=== PATIENT | female | born 1990 | race Caucasian/White ===

== ENCOUNTER → 2018-02-10 14:36 | Observation (INO) ==
[2018-02-10 13:34] LABS: Bilirubin,Urine Negative (Negative); Blood,Urine Negative (Negative); Clarity,Urine Cloudy (Clear); Color,Urine Yellow (Yellow); Glucose,Urine (UA) Normal (Normal); Ketones,Urine Negative (Negative); Leukocyte Esterase,Urine Trace (Negative); Nitrite,Urine Negative (Negative); Protein,Urine Negative (Neg-Trace); Specific Gravity,Urine 1.022 (1.010-1.025); Urobilinogen,Urine Normal (Normal)
[2018-02-10 13:37] LABS: Bacteria,Urine Moderate per hpf (None-Few); Hyaline Casts,Urine None Seen per lpf (None-Few); Squamous Epithelial Cell,Urine Many per lpf (None-Few); WBC,Urine 15-30 per hpf (0-3)
[2018-02-10 13:45] LABS: Amphetamine Screen,Urine Negative ng/mL (Cutoff=1000); Barbiturate Screen,Urine Negative ng/mL (Cutoff=200); Benzodiazepines Screen,Urine Negative ng/mL (Cutoff=200); Cannabinoid Screen,Urine Negative ng/mL (Cutoff = 50); Cocaine Screen,Urine Negative ng/mL (Cutoff= 300); Opiate Screen,Urine Negative ng/mL (Cutoff=300); Phencyclidine Screen,Urine Negative ng/mL (Cutoff=25)
[2018-02-10 14:00] LABS: RBC,Urine 0-3 per hpf (0-3); Renal Epithelial Cells,Urine Few per hpf (None-Few)
--- NOTE | 2018-02-10 14:33 | OB/GYN Progress Note ---
Date of Encounter: 02/10/18 Time of Encounter: 14:29 - Assessment and Plan (1) 23 weeks gestation of Current Visit: Yes Status: Acute (2) Round ligament pain Current Visit: Yes Status: Acute Discharge home with precautions. Follow-up in our office as pt plans to deliver here. Subjective - Subjective Interval history: 27 year-old presenting at 23 weeks gestation with c/o intermittent sharp pains in lower abdomen. She denies contractions, leaking, bleeding, urinary sx, fevers or other complaints. Good FM. No other complaints. She gets care at [place] but plans to deliver here. She missed her s/m appt because she was distressed after having a miscarriage. Antepartum ROS: movement normal, no loss of fluid, no vaginal bleeding, no contractions Objective - Vital Signs Vital Signs: Intake and Output 02/09/18 02/10/18 02/10/18 23:59 07:59 15:59 Other: Weight 80.6 kg Patient Weight 02/10/18 23:59 Weight 80.6 kg - Exam FHR: category 1 FHR comments: FHT reassuring for GA Auscultation: bilateral: normal Abdomen: Present: soft, gravid (TTP bilateral pelvis. No fundal tenderness and no suprapubic tenderness) Uterus: Present: normal. Absent: tenderness Comments: no contractions - Labs Labs: Abnormal lab results Urine Clarity Cloudy (Clear) A 02/10/18 13:04 Ur Leukocyte Esterase Trace (Negative) H 02/10/18 13:04 Urine Microscopic WBC 15-30 per hpf (0-3) H 02/10/18 13:04 Ur Squamous Epith Cells Many per lpf (None-Few) H 02/10/18 13:04 Urine Bacteria Moderate per hpf (None-Few) H 02/10/18 13:04
== END | disposition home or self-care (01) ==
LOC: 1NENULAB
PROVIDERS: ADMIT Obstetrics & Gynecology; ATTEND Obstetrics & Gynecology

== ENCOUNTER → 2018-03-06 02:16 | Observation (INO) ==
[2018-03-05 23:57] LABS: Bilirubin,Urine Negative (Negative); Blood,Urine Negative (Negative); Clarity,Urine Clear (Clear); Color,Urine Yellow (Yellow); Glucose,Urine (UA) Normal (Normal); Ketones,Urine Negative (Negative); Leukocyte Esterase,Urine Trace (Negative); Nitrite,Urine Negative (Negative); Protein,Urine Negative (Neg-Trace); Urobilinogen,Urine Normal (Normal)
[2018-03-06 00:07] LABS: Amphetamine Screen,Urine Negative ng/mL (Cutoff=1000); Barbiturate Screen,Urine Negative ng/mL (Cutoff=200); Benzodiazepines Screen,Urine Negative ng/mL (Cutoff=200); Cannabinoid Screen,Urine Negative ng/mL (Cutoff = 50); Cocaine Screen,Urine Negative ng/mL (Cutoff= 300); Opiate Screen,Urine Negative ng/mL (Cutoff=300); Phencyclidine Screen,Urine Negative ng/mL (Cutoff=25)
[2018-03-06 00:10] LABS: Bacteria,Urine Moderate per hpf (None-Few); Hyaline Casts,Urine None Seen per lpf (None-Few); Squamous Epithelial Cell,Urine Many per lpf (None-Few)
[2018-03-06 00:11] LABS: RBC,Urine 0-3 per hpf (0-3)
--- NOTE | 2018-03-06 00:56 | OB/GYN Progress Note ---
Date of Encounter: 03/06/18 Time of Encounter: 00:42 - Assessment and Plan (1) 26 weeks gestation of Current Visit: Yes Status: Acute (2) Back pain affecting in second trimester Current Visit: Yes Status: Acute UA - negative Terbutaline to stop contractions Follow up as scheduled D/C home Subjective - Subjective Interval history: Ms. Bravo presents tonight with c/o back pain that began earlier today. She endorses good FM and denies sensation of ctx, LOF, and VB. Antepartum ROS: new complaints, movement normal, no loss of fluid, no vaginal bleeding, no contractions Objective - Exam FHR: category 1 Auscultation: bilateral: normal Abdomen: Present: normal appearance, soft, gravid Uterus: Present: normal, firm - Labs Labs: Abnormal lab results Ur Leukocyte Esterase Trace (Negative) H 03/05/18 23:52 Urine Microscopic WBC 3-5 per hpf (0-3) H 03/05/18 23:52 Ur Squamous Epith Cells Many per lpf (None-Few) H 03/05/18 23:52 Urine Bacteria Moderate per hpf (None-Few) H 03/05/18 23:52 Ur Culture Indicated? NO. (NO) A 03/05/18 23:52
[~2018-03-06 02:16] MED LIST: Terbutaline 1 MG/ML VIAL SQ ONE
== END | disposition home or self-care (01) ==
LOC: 1NENULAB
PROVIDERS: ADMIT Advanced Practice Midwife; ATTEND Advanced Practice Midwife

== ENCOUNTER → 2018-05-10 13:18 | Observation (INO) ==
[2018-05-10 12:33] LABS: Basophils # 0.1 K/mcL (0.0-0.2); Basophils % 0.7 %; Eosinophils # 0.6 K/mcL (0.0-0.6); Eosinophils % 3.5 %; Hemoglobin 9.6 g/dL (11.5-15.4); Immature Granulocytes % 3.4 % (0-4); Lymphocytes # 2.3 K/mcL (0.6-4.6); Lymphocytes % 13.8 %; Mean Corpuscular HGB Conc 33.1 g/dL (31.6-35.5); Mean Corpuscular Hemoglobin 31.9 pg (28.0-33.3); Mean Corpuscular Volume 96.3 fL (83.0-100.0); Mean Platelet Volume 10.4 fL (9.4-12.4); Monocytes # 1.4 K/mcL (0.0-1.3); Neutrophils # 11.9 K/mcL (1.6-8.9); Nucleated Red Blood Cells 0.1 /100 WBC (0); Platelet Count 266 K/mcL (140-400); Red Blood Count 3.01 M/mcL (3.82-4.97); Red Cell Distribution Width 14.4 % (11.5-14.5); Segmented Neutrophils % 70.6 %
[2018-05-10 12:59] LABS: Alanine Aminotransferase 7 Units/L (7-52); Aspartate Amino Transferase 12 Units/L (13-39); BUN/Creatinine Ratio 12 (6-26); Blood Urea Nitrogen 7 mg/dL (6-20); Lactate Dehydrogenase 138 Units/L (140-271); Uric Acid 4.1 mg/dL (2.3-7.6); eGFR For African Americans > 60 (> 60); eGFR For Non-African Americans > 60 (> 60)
--- NOTE | 2018-05-10 13:13 | OB/GYN Progress Note ---
Date of Encounter: 05/10/18 Time of Encounter: 13:10 - Assessment and Plan (1) 36 weeks gestation of Current Visit: Yes Status: Acute (2) Elevated blood pressure affecting in third trimester, antepartum Current Visit: Yes Status: Acute Normotensive in triage, PIH labs negative. Discussed with Dr. Ascencio, previously elevated P/C ratio so no need to wait on P/C for discharge. Discharged home with PIH, labor and when to return to triage precautions. Pt verbalizes understanding. Subjective - Subjective Interval history: Sent over from office for MANDIE ochoa for mild range pressures and complaints of headache, and blurry vision and seeing stars today. Pt states she has not tried tylenol. Reports good movement, denies vaginal bleeding or leaking of fluid. Antepartum ROS: movement normal, no loss of fluid, no vaginal bleeding, no contractions Objective - Exam FHR: auscultation normal FHR comments: Baseline 125 Abdomen: Present: soft, gravid Comments: +1 DTR - Labs Labs: Abnormal lab results WBC 16.9 K/mcL (4.3-11.1) H 05/10/18 12:00 RBC 3.01 M/mcL (3.82-4.97) L 05/10/18 12:00 Hgb 9.6 g/dL (11.5-15.4) L 05/10/18 12:00 Hct 29.0 % (35.3-44.9) L 05/10/18 12:00 Neutrophils # 11.9 K/mcL (1.6-8.9) H 05/10/18 12:00 Monocytes # 1.4 K/mcL (0.0-1.3) H 05/10/18 12:00 Nucleated RBCs/100 WBC 0.1 /100 WBC (0) H 05/10/18 12:00 Creatinine 0.57 mg/dL (0.60-1.20) L 05/10/18 12:00 AST 12 Units/L (13-39) L 05/10/18 12:00 Lactate Dehydrogenase 138 Units/L (140-271) L 05/10/18 12:00
[2018-05-10 13:38] LABS: Amphetamine Screen,Urine Negative ng/mL (Cutoff=1000); Barbiturate Screen,Urine Negative ng/mL (Cutoff=200); Benzodiazepines Screen,Urine Negative ng/mL (Cutoff=200); Cannabinoid Screen,Urine Negative ng/mL (Cutoff = 50); Cocaine Screen,Urine Negative ng/mL (Cutoff= 300); Creatinine,Urine 114 mg/dL; Opiate Screen,Urine Negative ng/mL (Cutoff=300); Phencyclidine Screen,Urine Negative ng/mL (Cutoff=25); Protein/Creatinine Ratio,Urine 0.21 mg/mg (0.00-0.20)
== END | disposition home or self-care (01) ==
LOC: 1NENULAB
PROVIDERS: ADMIT Obstetrics & Gynecology; ATTEND Obstetrics & Gynecology

== ENCOUNTER → 2018-05-17 22:47 | Observation (INO) ==
[2018-05-17 21:10] LABS: Bilirubin,Urine Negative (Negative); Blood,Urine Negative (Negative); Clarity,Urine Cloudy (Clear); Color,Urine Dark Yellow (Yellow); Glucose,Urine (UA) Normal (Normal); Ketones,Urine Trace mg/dL (Negative); Leukocyte Esterase,Urine Negative (Negative); Nitrite,Urine Negative (Negative); PH,Urine 6.5 pH Units (5.0-8.0); Protein,Urine 30 mg/dL (Neg-Trace); Urobilinogen,Urine Normal (Normal)
--- NOTE | 2018-05-17 21:11 | OB/GYN Progress Note ---
Date of Encounter: 05/17/18 Time of Encounter: 21:08 - Assessment and Plan (1) 37 weeks gestation of Current Visit: Yes Status: Acute Continue routine PNC as scheduled Labor precautions given Discharge home GBS unresulted from office visit 2 weeks ago. Recollected and sent for processing today. (2) Uterine contractions during Current Visit: Yes Status: Acute Cervix unchanged from initial exam Drink 60 oz water Take a warm shower or bath Return when contractions are 5 minutes apart for an hour. Subjective - Subjective Interval history: Ms. Bravo is a 27 year old at 37 weeks gestation who presents with c/ o contractions happening every 2 minutes for 20 minutes. She endorses good fm and denies lof, vb. Antepartum ROS: new complaints, movement normal, contractions, no loss of fluid, no vaginal bleeding Objective - Vital Signs Vital Signs: Intake and Output 05/17/18 05/17/18 05/17/18 07:59 15:59 23:59 Other: Weight 96.162 kg Patient Weight 05/17/18 23:59 Weight 96.162 kg - Exam FHR: category 1 FHR comments: Baseline 130 Moderate variability Accelerations present 15x15 No decelerations FHR Category I Irritability on toco Auscultation: bilateral: normal Abdomen: Present: normal appearance, soft, gravid Uterus: Present: normal, firm Cervical dilation: 3-4 Cervix effacement: 50 station: -3
[2018-05-17 21:12] LABS: Bacteria,Urine Moderate per hpf (None-Few); Hyaline Casts,Urine None Seen per lpf (None-Few); RBC,Urine 0-3 per hpf (0-3); Squamous Epithelial Cell,Urine Many per lpf (None-Few)
[2018-05-17 21:20] LABS: Amphetamine Screen,Urine Negative ng/mL (Cutoff=1000); Barbiturate Screen,Urine Negative ng/mL (Cutoff=200); Benzodiazepines Screen,Urine Negative ng/mL (Cutoff=200); Cannabinoid Screen,Urine Negative ng/mL (Cutoff = 50); Cocaine Screen,Urine Negative ng/mL (Cutoff= 300); Opiate Screen,Urine Negative ng/mL (Cutoff=300); Phencyclidine Screen,Urine Negative ng/mL (Cutoff=25)
[2018-05-17 21:22] LABS: Calcium Oxalate Crystals,Urine Present
== END | disposition home or self-care (01) ==
LOC: 1NENULAB
PROVIDERS: ADMIT Advanced Practice Midwife; ATTEND Advanced Practice Midwife

== ENCOUNTER 2019-09-23 05:20 | Inpatient (IN) ==
[2019-09-23] MEDS ORDERED: Sodium Bicarbonate 50 MEQ/50 ML VIAL ONE (05:43)
[2019-09-23 06:00] LABS: Hematocrit 42.2 % (35.3-44.9); Hemoglobin 12.7 g/dL (11.5-15.4); Mean Corpuscular HGB Conc 30.1 g/dL (31.6-35.5); Mean Corpuscular Hemoglobin 30.8 pg (28.0-33.3); Mean Corpuscular Volume 102.4 fL (83.0-100.0); Mean Platelet Volume 10.3 fL (9.4-12.4); Platelet Count 313 K/mcL (140-400); Red Blood Count 4.12 M/mcL (3.82-4.97); Red Cell Distribution Width 13.4 % (11.5-14.5); White Blood Count 23.3 K/mcL (4.3-11.1)
[2019-09-23 06:07] LABS: VBG HCO3 16 mEq/L (21-27); VBG PCO2 104 mmHg (41-51); VBG PH 6.79 pH Units (7.32-7.42); VBG PO2 132 mmHg (25-50)
[2019-09-23] MEDS ORDERED: Calcium Gluconate 1gm/50mL 1 GM/50 ML BAG IVPB PRN (06:18)
[2019-09-23] MEDS ORDERED: 0.9 % Sodium Chloride 1,000 ML IVC ONE (06:20)
[2019-09-23 06:24] LABS: Alanine Aminotransferase 127 Units/L (7-52); Albumin 3.4 g/dL (3.5-5.7); Albumin/Globulin Ratio 1.6 (1.1-2.2); Alkaline Phosphatase 61 Units/L (34-104); Aspartate Amino Transferase 126 Units/L (13-39); BUN/Creatinine Ratio 16 (6-26); Bilirubin,Indirect 0.2 mg/dL (0.0-1.0); Bilirubin,Total 0.2 mg/dL (0.3-1.0); Blood Urea Nitrogen 17 mg/dL (6-20); Calcium 10.8 mg/dL (8.6-10.3); Carbon Dioxide 18 mEq/L (23-29); Chloride 99 mEq/L (98-107); Globulin 2.1 g/dL (2.4-3.5); Glucose 369 mg/dL (70-105); Osmolality,Calculated 305 (280-300); Potassium 4.5 mEq/L (3.5-5.1); Sodium 139 mEq/L (136-145); Total Protein 5.5 g/dL (6.4-8.9); eGFR For African Americans > 60 (> 60); eGFR For Non-African Americans 60 (> 60)
[2019-09-23 06:28] LABS: Troponin I 0.14 ng/mL (< 0.04)
[2019-09-23] MEDS ORDERED: Sodium Bicarbonate 50 MEQ in 0.45 % Sodium Chloride 1,000 ML IVC SCH (06:30)
[2019-09-23] MEDS ORDERED: *HR* FentaNYL (PF) 100 MCG/2 ML VIAL IVP ONE (06:33)
[2019-09-23] MEDS ORDERED: *HR* LORazepam 2 MG/ML VIAL IM STA (06:33)
[2019-09-23] MEDS ORDERED: *HR* LORazepam 2 MG/ML VIAL IVP ONE (06:34)
[2019-09-23] MEDS ORDERED: Azithromycin 500 MG in D5% in Water 250 ML IVPB STA (06:36)
[2019-09-23] MEDS ORDERED: cefTRIAXone 1,000 MG in Water for inj. (sterile) 10 ML IVP ONE ×2 (06:36→08:21)
[2019-09-23 06:37] LABS: ABG Base Excess -8 mEq/L (-2 to 3); ABG HCO3 23 mEq/L (21-27); ABG Oxygen Saturation 100 % (95-98); ABG PCO2 74 mmHg (35-45); ABG PH 7.11 pH Units (7.32-7.45); ABG PO2 385 mmHg (85-104); ABG TCO2 26 mEq/L (20-26); Blood Gas Modality ASSIST CONTROL; Blood Gas VT 470 cc
[2019-09-23 06:43] LABS: Amphetamine Screen,Urine Negative ng/mL (Cutoff=1000); Barbiturate Screen,Urine Negative ng/mL (Cutoff=200)
[2019-09-23 06:44] LABS: Benzodiazepines Screen,Urine Negative ng/mL (Cutoff=300); Cannabinoid Screen,Urine Negative ng/mL (Cutoff = 50); Cocaine Screen,Urine Negative ng/mL (Cutoff= 300); Opiate Screen,Urine Negative ng/mL (Cutoff=300); Phencyclidine Screen,Urine Negative ng/mL (Cutoff=25)
[2019-09-23 07:19] LABS: Bilirubin,Urine Negative (Negative); Blood,Urine Small (Negative); Clarity,Urine Clear (Clear); Color,Urine Yellow (Yellow); Glucose,Urine (UA) 500 mg/dL (Normal); Ketones,Urine Negative (Negative); Leukocyte Esterase,Urine Negative (Negative); Nitrite,Urine Negative (Negative); Protein,Urine 100 mg/dL (Neg-Trace); Urobilinogen,Urine Normal (Normal)
[2019-09-23] MEDS ORDERED: *HR* Dextrose 50 % in Water (Syg) 50 ML SYRINGE IVP PRN ×2 (07:23→09:28)
[2019-09-23] MEDS ORDERED: Insulin Human Regular 100 UNIT in 0.9 % Sodium Chloride 100 ML IVC SCH (07:30)
[2019-09-23] MEDS ORDERED: 0.9 % Sodium Chloride w KCl 20 MEQ/1,000 ML MLS IVC SCH (07:30)
[2019-09-23] MEDS ORDERED: Isovue-370 500 ML BOTTLE IVP ONE ×2 (07:34→08:40)
[2019-09-23 07:35] LABS: Bacteria,Urine Few per hpf (None-Few); RBC,Urine 30-50 per hpf (0-3); WBC,Urine 0-3 per hpf (0-3)
[2019-09-23] MEDS ORDERED: Piperacillin/Tazobactam 3.375 GM in 0.9 % Sodium Chloride Mini Bag 100 ML IVPB ONE (07:38)
[2019-09-23] MEDS ORDERED: Artificial Tears SOLN 15 ML BOTTLE BOTH EYES PRN (08:31)
[2019-09-23] MEDS ORDERED: FentaNYL (PF) 1,000 MCG in 0.9 % Sodium Chloride 80 ML IVC SCH (08:45)
[2019-09-23 08:58] LABS: ABG Base Excess 1 mEq/L (-2 to 3); ABG HCO3 26 mEq/L (21-27); ABG Oxygen Saturation 100 % (95-98); ABG PCO2 43 mmHg (35-45); ABG PH 7.39 pH Units (7.32-7.45); ABG PO2 235 mmHg (85-104); ABG TCO2 27 mEq/L (20-26); Blood Gas Modality ASSIST CONTROL; Blood Gas VT 450 cc
[2019-09-23] MEDS ORDERED: Pantoprazole 40 MG VIAL IVP SCH (09:00)
[2019-09-23] MEDS ORDERED: Dexamethasone 10 MG/ML VIAL IVP SCH ×2 (09:00→16:00)
[2019-09-23] MEDS ORDERED: Chlorhexidine Rinse 15 ML MOUTHWASH MM SCH (09:00)
[2019-09-23 09:25] LABS: BUN/Creatinine Ratio 18 (6-26); Blood Urea Nitrogen 17 mg/dL (6-20); Calcium 11.1 mg/dL (8.6-10.3); Carbon Dioxide 26 mEq/L (23-29); Chloride 98 mEq/L (98-107); Glucose 175 mg/dL (70-105); Osmolality,Calculated 282 (280-300); Potassium 5.6 mEq/L (3.5-5.1); Sodium 133 mEq/L (136-145); eGFR For African Americans > 60 (> 60); eGFR For Non-African Americans > 60 (> 60)
[2019-09-23] MEDS ORDERED: Dextrose Gel 15 GM/37.5 ML TUBE PO PRN ×2 (09:28)
[2019-09-23] MEDS ORDERED: D5% in Water 1,000 ML IVC PRN (09:28)
[2019-09-23] MEDS ORDERED: 0.9 % Sodium Chloride 1,000 ML IVC SCH (09:30)
[2019-09-23] MEDS ORDERED: *HR* Meperidine 25 MG/ML SYRINGE IVP PRN (09:35)
[2019-09-23 09:38] LABS: Thyroid Stimulating Hormone 4.398 mcIU/mL (0.340-5.600)
[2019-09-23] MEDS ORDERED: *HR* Heparin 5,000 UNIT/ML VIAL SQ SCH (09:45)
[2019-09-23] MEDS ORDERED: Acyclovir 750 MG in D5% in Water 250 ML IVPB SCH (10:00)
[2019-09-23] MEDS ORDERED: MetroNIDAZOLE 500 MG/100 ML 500 MG/100 ML BAG IVPB SCH (10:00)
[2019-09-23 10:46] LABS: Red Blood Cell,CSF < 0.002 M/mcL
[2019-09-23 10:47] LABS: Appearance,CSF Clear (Clear)
[2019-09-23 10:51] LABS: Estimated Average Glucose 117 mg/dl
[2019-09-23] MEDS ORDERED: *HR* Heparin 5,000 UNIT/ML VIAL IVP ONE (10:57)
[2019-09-23] MEDS ORDERED: *HR* Heparin 5,000 UNIT/ML VIAL IVP PRN ×2 (10:57)
[2019-09-23] MEDS ORDERED: Heparin 25,000 UNIT/250 ML D5W 25,000 UNIT/250 ML IV.SOLN IVC SCH (11:00)
[2019-09-23 11:03] LABS: Glucose,CSF 116 mg/dL (40-70); Total Protein,CSF 58 mg/dL (15-45)
[2019-09-23 11:47] LABS: Hematocrit 46.9 % (35.3-44.9); Hemoglobin 15.5 g/dL (11.5-15.4); Mean Corpuscular Hemoglobin 30.8 pg (28.0-33.3); Mean Corpuscular Volume 93.2 fL (83.0-100.0); Mean Platelet Volume 10.3 fL (9.4-12.4); Platelet Count 305 K/mcL (140-400); Red Blood Count 5.03 M/mcL (3.82-4.97); Red Cell Distribution Width 13.4 % (11.5-14.5)
[2019-09-23 11:58] LABS: INR 0.9; Prothrombin Time 9.8 Seconds (9.4-12.1); White Blood Count 38.6 K/mcL (4.3-11.1)
[2019-09-23] MEDS ORDERED: Insulin LISPRO 300 UNITS/3 ML VIAL SQ SCH (12:00)
[2019-09-23] MEDS ORDERED: Artificial Tears SOLN 15 ML BOTTLE BOTH EYES SCH (12:00)
[2019-09-23 12:01] VITALS: BP 102/79
[2019-09-23] MEDS ORDERED: *HR* Succinylcholine 200 MG/10 ML VIAL IVP ONE (12:32)
[2019-09-23] MEDS ORDERED: *HR* EPINEPHrine 1 MG/10 ML SYRINGE IVP ONE (12:45)
[2019-09-23] MEDS ORDERED: Aminoglycoside Consult 1 EACH MC ONE (12:45)
[2019-09-23 12:48] LABS: Adenovirus Not Detected (Not Detect); Bordetella Pertussis Not Detected (Not Detect); Chlamydophila pneumoniae Not Detected (Not Detect); Coronavirus 229E Not Detected (Not Detect); Coronavirus HKU1 Not Detected (Not Detect); Coronavirus NL63 Not Detected (Not Detect); Coronavirus OC43 Not Detected (Not Detect); Human Metapneumovirus Not Detected (Not Detect); Human Rhinovirus/Enterovirus Not Detected (Not Detect); Influenza A Subtype 2009 H1 Not Detected (Not Detect); Influenza A Untypeable Not Detected (Not Detect); Influenza B Not Detected (Not Detect); Mycoplasma pneumoniae Not Detected (Not Detect); Parainfluenza Virus 1 Not Detected (Not Detect); Parainfluenza Virus 2 Not Detected (Not Detect); Parainfluenza Virus 3 Not Detected (Not Detect); Parainfluenza Virus 4 Not Detected (Not Detect); Respiratory Syncytial Virus Not Detected (Not Detect)
[2019-09-23] MEDS ORDERED: Acyclovir 900 MG in D5% in Water 250 ML IVPB SCH (16:00)
[2019-09-23] MEDS ORDERED: cefTRIAXone 2,000 MG in 0.9 % Sodium Chloride Mini Bag 100 ML IVPB SCH (18:00)
== END 2019-09-23 12:46 | disposition other institution (70) | DRG 196 ==
LOC: EMEROOARM 05:20 → MERGE 07:42 → ICNU 07:42
PROVIDERS: ADMIT Pediatrics; ATTEND Pediatrics